=== PATIENT | male | born 1990 | race African-American/Black ===

== ENCOUNTER 2023-01-05 21:40 | Emergency (ER) | payer OTHER ==
[~2023-01-05] VITALS: Ht 170.2 cm; Wt 81.6 kg
[2023-01-05 21:50] VITALS: BP 159/106
--- NOTE | 2023-01-05 21:50 | NUR ---
seen and examined by hema
[2023-01-05] MEDS ORDERED: QUET50TA PO (22:05)
[2023-01-05] MEDS ORDERED: ALBU0.0912 INH (22:05)
[2023-01-05] MEDS ORDERED: BECL10.62 INH (22:05)
[2023-01-05] MEDS ORDERED: CALC-1646 PO (22:05)
[2023-01-05] MEDS ORDERED: K PH1TAB6 PO (22:05)
[2023-01-05] MEDS ORDERED: MIRT-91 PO (22:05)
[2023-01-05 22:10] VITALS: BP 159/106
[2023-01-05] MEDS ORDERED: ACET-5636 PO (22:10)
--- NOTE | 2023-01-05 22:10 | NUR ---
Patient discharged with v/s stable. Written and verbal after care instructions given and explained. Patient alert, oriented and verbalized understanding of instructions. Ambulatory with steady gait. All questions addressed prior to discharge. ID band removed. Patient advised to follow up with PMD. Rx of percocet,proventil,qvar,oyster shell,phospha, remeron,seroquel given. Patient educated on indication of medication including possible reaction and side effects. Opportunity to ask questions provided and answered.
== END 2023-01-05 22:10 | disposition home or self-care (01) ==
LOC: MED 21:40
DX: J45.909 Unspecified asthma, uncomplicated (principal); F31.9 Bipolar disorder, unspecified; E55.0 Rickets, active; Z76.0 Encounter for issue of repeat prescription; Z98.890 Other specified postprocedural states; Z79.899 Other long term (current) drug therapy
CPT/HCPCS: 99281

== ENCOUNTER 2023-10-21 21:30 | Emergency (ER) | payer OTHER ==
[~2023-10-21] VITALS: Ht 170.2 cm; Wt 93.9 kg
[~2023-10-21 21:30] MED LIST: ACET-5636 PO; ALBU0.0912 INH; BECL10.62 INH; CALC-1646 PO; K PH1TAB6 PO; MIRT-120 PO; QUET50TA PO
[2023-10-21 21:39] VITALS: BP 130/86; PULSE 92; RESP 16; TEMP 98.6; O2SAT 96
[2023-10-21] MEDS: guaiFENesin/CODEINE 100/10MG 5 ML UDC PO ONE (22:49)
[2023-10-21] MEDS: KETOROLAC 30 MG/ML VIAL IM ONE (22:50)
[2023-10-22 00:51] LABS: FLU A ANTIGEN negative (NEGATIVE); FLU B ANTIGEN negative (NEGATIVE)
[2023-10-22] MEDS ORDERED: AZIT250T4 PO (01:05)
[2023-10-22] MEDS: AZITHROMYCIN 250 MG TAB PO ONE (01:14)
== END 2023-10-22 01:10 | disposition home or self-care (01) ==
LOC: MED 21:30
DX: R05.9 Cough, unspecified (principal); M79.18 Myalgia, other site; Z20.822 Contact with and (suspected) exposure to COVID-19; J45.909 Unspecified asthma, uncomplicated; I10 Essential (primary) hypertension; Z79.899 Other long term (current) drug therapy
CPT/HCPCS: 71046; 87426; 87804; 96372; 99284; J1885

== ENCOUNTER 2023-11-22 18:17 | Emergency (ER) | payer OTHER ==
[~2023-11-22] VITALS: Ht 170.2 cm; Wt 90.7 kg
[~2023-11-22 18:17] MED LIST changes: +AZIT250T4 PO
[2023-11-22 18:49] VITALS: BP 135/91; PULSE 90; RESP 20; TEMP 98.2; O2SAT 97
[2023-11-22 20:45] LABS: BASOPHILS # (AUTO) 0.1 K/uL (0.00-0.22); EOSINOPHILS # (AUTO) 0.1 K/uL (0-0.4); EOSINOPHILS % (AUTO) 1.5 % (0.0-4.0); HEMATOCRIT 39.9 % (36-52); HEMOGLOBIN 13.1 g/dL (12.0-18.0); LYMPHOCYTES # (AUTO) 3.4 K/uL (2.0-11.5); LYMPHOCYTES % (AUTO) 38.3 % (20.5-51.1); MEAN CORPUSCULAR HEMOGLOBIN 29 pg (27-31); MEAN CORPUSCULAR HGB CONC 33 g/dL (33-37); MEAN CORPUSCULAR VOLUME 87.7 fL (80-94); MONOCYTES # (AUTO) 0.6 K/uL (0.8-1.0); MONOCYTES % (AUTO) 7.1 % (1.7-9.3); NEUTROPHILS # (AUTO) 4.6 K/uL (1.8-7.7); NEUTROPHILS % (AUTO) 52.1 % (42.2-75.2); PLATELET COUNT (AUTO) 183 K/uL (140-450); RED BLOOD CELL COUNT(AUTO) 4.55 MIL/uL (4.20-6.10); WHITE BLOOD COUNT (AUTO) 8.8 K/uL (4.8-10.8)
[2023-11-22 21:00] LABS: ANION GAP 10.4 (8-16); CALCIUM 6.9 mg/dL (8.5-10.1); CARBON DIOXIDE 27.6 mmol/L (21-32)
[2023-11-22 21:08] LABS: ALBUMIN 3.7 g/dL (3.4-5.0); BILIRUBIN,DIRECT 0.1 mg/dL (0.0-0.3); TOTAL BILIRUBIN 0.5 mg/dL (0.0-1.0); TOTAL PROTEIN, SERUM 7.3 g/dL (6.4-8.2)
[2023-11-22] MEDS: KETOROLAC 30 MG/ML VIAL IM ONE (21:20)
[2023-11-22 21:30] LABS: APPEARANCE,URINE CLEAR (CLEAR); BILIRUBIN,URINE NEGATIVE (NEGATIVE); BLOOD, URINE TRACE-I (NEGATIVE); COLOR,URINE YELLOW (YELLOW); LEUKOCYTE ESTERASE ,URINE NEGATIVE (NEGATIVE); NITRITE, URINE NEGATIVE (NEGATIVE); PROTEIN,URINE NEGATIVE (NEGATIVE); UGLUCOSE NEGATIVE (NEGATIVE); UROBILINOGEN,URINE 0.2 EU/dL (0.2 - 1)
[2023-11-22 21:36] LABS: BACTERIA,URINE FEW /HPF (None Seen); RBC,URINE 0-5 /HPF (0-5); SQUAMOUS EPITHELIAL CELL,UR 0-3 (FEW) /LPF (0-3 (FEW)); WBC,URINE 0-5 /HPF (0-5)
[2023-11-22] MEDS ORDERED: LID5T TP (22:28)
[2023-11-22] MEDS ORDERED: IBUP-2213 PO (22:28)
[2023-11-22 22:30] VITALS: BP 135/91; PULSE 90; RESP 20; TEMP 98.2; O2SAT 97
== END 2023-11-22 22:30 | disposition home or self-care (01) ==
LOC: MED 18:17
DX: R10.11 Right upper quadrant pain (principal); J45.909 Unspecified asthma, uncomplicated; I10 Essential (primary) hypertension; Z79.899 Other long term (current) drug therapy
CPT/HCPCS: 36415; 74176; 80048; 80076; 81001; 83690; 85025; 96372; 99285; J1885